=== PATIENT | male | born 1935 | race Caucasian/White ===

== ENCOUNTER 2021-02-03 19:29 | Emergency (ER) | payer MEDICARE ==
[~2021-02-03] VITALS: Ht 180.3 cm; Wt 74.5 kg
[2021-02-03 19:31] VITALS: BP 172/72
[2021-02-03 20:39] LABS: BASOPHILS % (AUTO) 2 % (0-1); EOSINOPHILS % (AUTO) 1 % (1-7); LYMPHOCYTES % (AUTO) 30 % (22-44); MEAN CORPUSCULAR HEMOGLOBIN 35.7 pg (27.5-34.5); MEAN CORPUSCULAR HGB CONC 34.2 g/dL (33.2-36.2); MEAN PLATELET VOLUME 8.1 fL (7.4-10.4); MONOCYTES % (AUTO) 10 % (2-9); NEUTROPHILS % (AUTO) 57 % (42-75); PLATELET COUNT 217 x10^3/uL (130-400); RED BLOOD COUNT 4.07 x10^6/uL (4.38-5.82); RED CELL DISTRIBUTION WIDTH 13.8 % (9.4-14.8)
--- NOTE | 2021-02-03 20:41 | NUR ---
PT STATES URINARY RETENTION, STATES HX OF SAME. PT STATES INCREASING RETENTION FOR APPROX 4 DAYS. PT ATTEMPTING URINE SAMPLE CURRENTLY, WILL SCAN PT'S BLADDER AFTER VOID PER ORDERS. CONT TO MONITOR.
[2021-02-03 20:48] LABS: MD NO
[2021-02-03 20:52] LABS: ALBUMIN 4.1 g/dL (3.4-5.0); ANION GAP 7 mmol/L (5-15); CALCIUM 9.2 mg/dL (8.5-10.1); CHLORIDE 101 mmol/L (98-107)
[2021-02-03 20:55] LABS: ALANINE AMINOTRANSFERASE 24 U/L (12-78); ALKALINE PHOSPHATASE 85 U/L (45-117); BILIRUBIN,TOTAL 0.8 mg/dL (0.2-1.0); CREATININE 1.57 mg/dL (0.7-1.3); TOTAL PROTEIN 7.8 g/dL (6.4-8.2)
--- NOTE | 2021-02-03 21:06 | NUR ---
REPORT TO KAL[facility] MEMBRENO.
--- NOTE | 2021-02-03 22:13 | NUR ---
PT VOIDED 150 ML, POST VOID SCAN 317 ML.
[2021-02-03 22:38] LABS: MICROSCOPIC NOT IND
== END 2021-02-04 00:10 | disposition home or self-care (01) ==
LOC: ED 22:31
DX: N18.2 Chronic kidney disease, stage 2 (mild) (principal); R33.9 Retention of urine, unspecified
CPT/HCPCS: 36415; 80053; 81003; 85025; 99284